=== PATIENT | female | born 1985 | race Two or more races ===

== ENCOUNTER 2023-03-09 08:54 | Emergency (ER) | payer BC ==
[~2023-03-09] VITALS: Ht 160 cm; Wt 69.9 kg
[2023-03-09] MEDS ORDERED: IV NS 0.9% 1,000 ML BAG IV ONE (09:30)
[2023-03-09 09:46] LABS: BASOPHILS % (AUTO) 0.2 % (0.0-2.0); EOSINOPHILS # (AUTO) 0.2 K/uL (0.0-0.7); EOSINOPHILS % (AUTO) 2.5 % (0.0-6.0); HEMATOCRIT 39 % (33-45); HEMOGLOBIN 12.9 g/dL (11.5-14.8); LYMPHOCYTES # (AUTO) 0.5 K/uL (0.8-4.8); LYMPHOCYTES % (AUTO) 5.6 % (20.0-44.0); MEAN CORPUSCULAR HEMOGLOBIN 30 PG (26.0-33.0); MEAN CORPUSCULAR HGB CONC 33 g/dl (31.0-36.0); MEAN CORPUSCULAR VOLUME 89 fL (82-100); MONOCYTES # (AUTO) 0.2 K/uL (0.1-1.30); MONOCYTES % (AUTO) 1.7 % (2.0-12.0); NEUTROPHILS # (AUTO) 8.8 K/uL (1.8-8.9); PLATELET COUNT (AUTO) 129 K/uL (150-450); RED BLOOD CELL COUNT(AUTO) 4.34 MIL/uL (4.0-5.2); RED CELL DISTRIBUTION WIDTH 13.5 % (11.5-15.0); WHITE BLOOD COUNT (AUTO) 9.8 K/uL (4.3-11.0)
[2023-03-09 10:01] LABS: CALCIUM, SERUM 9.6 mg/dL (8.5-10.1); CARBON DIOXIDE 28 mmol/L (21-32); CHLORIDE 100 mmol/L (98-107); CREATININE 0.9 mg/dL (0.6-1.3); GLUCOSE 99 mg/dL (74-106); POTASSIUM 4.7 mmol/L (3.5-5.1); SODIUM SERUM 135 mmol/L (136-145); UREA NITROGEN, BLOOD 11 mg/dL (7-18)
[2023-03-09] MEDS ORDERED: IBUP-1955 PO (11:27)
[2023-03-09] MEDS ORDERED: KETOROLAC TROMETHAMINE INJ 30 MG/ML VIAL IV ONE (11:30)
[2023-03-09] MEDS ORDERED: ACETAMINOPHEN 325 MG TABLET PO ONE (11:30)
[2023-03-09] MEDS ORDERED: KETOROLAC TROMETHAMINE 15 MG/ML VIAL ONE (12:05)
[2023-03-09] MEDS ORDERED: ACETAMINOPHEN 325 MG TABLET ONE (12:06)
[2023-03-09 13:03] VITALS: BP 105/56; TEMP 99.4; O2SAT 97
== END 2023-03-09 13:12 | disposition home or self-care (01) ==
LOC: ER 09:11
DX: S01.81XA Laceration without foreign body of other part of head, initial encounter (principal); R55 Syncope and collapse; D69.6 Thrombocytopenia, unspecified; R51.9 Headache, unspecified; Z85.3 Personal history of malignant neoplasm of breast; Z60.2 Problems related to living alone; W18.30XA Fall on same level, unspecified, initial encounter; Y93.89 Activity, other specified; Y92.89 Other specified places as the place of occurrence of the external cause; Y99.8 Other external cause status
CPT/HCPCS: 12013; 36415; 70450; 71045; 80048; 82962; 84484; 85025; 93005; 96361; 96374; 99285; A6403; J1885; J7030